=== PATIENT | female | born 1960 | race Two or more races ===

== ENCOUNTER 2017-02-03 12:15 | Day surgery (SDC) | payer OTHER ==
[2017-02-03] VITALS (10 sets, daily range): BP systolic 108–142; BP diastolic 48–75; PULSE 58–92; RESP 10–19
[~2017-02-03] VITALS: Ht 152.4 cm; Wt 79.2 kg
[~2017-02-03 12:15] MED LIST: ACET500C5 PO; MUPI22OI2 TOP; NITR-58 PO; ONDA4TAB35 PO; PHEN-538 PO
--- NOTE | 2017-02-03 12:31 | HPN ---
Date/Time of Note Date/Time of Note DATE: 02/03/17 TIME: 12:31 Interval H&P Admission Note Pt. seen H&P reviewed: No system changes LUTHER TOBAR MD Feb 03, 2017 12:31
[2017-02-03] MEDS ORDERED: CEFAZOLIN 1 GM/50 ML (PMX) 50 ML IVPB ONE (13:30)
[2017-02-03] MEDS ORDERED: OXYMETAZOLINE 0.05% 15 ML NAS SPRAY NASAL ONE ×2 (15:22→16:09)
[2017-02-03] MEDS ORDERED: LIDOCAINE 2%/EPI 30 ML INJ ONE (15:22)
[2017-02-03] MEDS ORDERED: FENTAnyl 50 MCG/ML VIAL ONE (15:48)
[2017-02-03] MEDS ORDERED: MIDAZOLAM 1 MG/ML 2 ML INJ ONE (15:48)
[2017-02-03] MEDS ORDERED: LIDOCAINE 2%/EPI MPF (SDV) 20 ML VIAL INJ ONE (16:09)
[2017-02-03] MEDS ORDERED: ONDANSETRON 4 MG INJ IV PRN (16:30)
[2017-02-03] MEDS ORDERED: DIPHENHYDRAMINE 50 MG INJ IV PRN (16:30)
[2017-02-03] MEDS ORDERED: FENTAnyl 50 MCG/ML VIAL IV PRN (16:30)
[2017-02-03] MEDS ORDERED: MEPERIDINE 25 MG INJ IV PRN (16:30)
[2017-02-03] MEDS ORDERED: GLYCOPYRROLATE 0.4 MG INJ ONE (16:41)
[2017-02-03] MEDS ORDERED: PROPOFOL 20 ML ONE (16:41)
[2017-02-03] MEDS ORDERED: NEOSTIGMINE 3 MG/3 ML SYRINGE ONE (16:41)
[2017-02-03] MEDS ORDERED: LIDOCAINE 2% (SDV) 5 ML INJ ONE (16:41)
[2017-02-03] MEDS ORDERED: ROCURONIUM 50 MG INJ ONE (16:41)
[2017-02-03] MEDS ORDERED: ONDANSETRON 4 MG INJ ONE (16:42)
[2017-02-03] MEDS ORDERED: CEFAZOLIN 1 GM INJ ONE (16:44)
[2017-02-03] MEDS ORDERED: NEOMYC/POLYMYX/BACIT 30 GM OINT TOP ONE (16:45)
--- NOTE | 2017-02-03 16:57 | OPR ---
DATE OF OPERATION: 02/03/2017 PREOPERATIVE DIAGNOSES: 1. Deviated nasal septum. 2. Turbinate hypertrophy. POSTOPERATIVE DIAGNOSES: 1. Deviated nasal septum. 2. Turbinate hypertrophy. OPERATION PERFORMED: 1. Septoplasty. 2. Inferior turbinate reduction. ANESTHESIA: General endotracheal. INDICATIONS FOR PROCEDURE: The patient is a 56-year-old female with a longstanding history of nasal airway obstruction that has been refractory to medical management. The risks, benefits, and altern atives of surgery were discussed which included, but are not limited to, bleeding, infection, pain, scarring, need for further surgery, no improvement in symptoms, septal perforation, numbness of the upper teeth. She understood all of these and signed a consent. DESCRIPTION OF PROCEDURE: After informed consent was obtained the patient was brought back to the o perating room. She was intubated by anesthesia and sedated. The bed was turned 90 degrees. Her ey es were protected, a head drape was placed and Franc-Synephrine soaked pledgets were inserted into the nasal cavity and left for several minutes and then removed. 1% lidocaine with epinephrine was inje cted into the nasal septum and inferior turbinates. A 15 blade was used to make a left hemitransfix ion incision. A mucoperichondrial flap was elevated. The septum was found to be deviated to the le ft side. The inferior portion of the quadrangular cartilage was found to be deviated to the left ove r the maxillary crest. A D-knife was used to excise the inferior portion of the quadrangular cartil age. A 1-cm caudal strut was left intact, with its attachment down to the maxillary crest. Once th is cartilage was removed, it exposed a bony maxillary crest spur which was removed with Kalpana fo rceps. Once this was complete, the flap was laid back down and the flap was closed with interrupted 4-0 chromic suture. A stab incision was made in the heads of both inferior turbinates. Mucoperiosteal flaps were elevat ed. The inferior turbinate bone was removed with the Kalpana forceps. The Coblator was applied whe re needed to reduce the soft tissue of the inferior turbinates. The area was then irrigated profuse ly with saline. Silastic Grey splints coated in antibiotic ointment were placed bilaterally and se cured with a 3-0 Prolene suture. The patient was then handed over to anesthesia, extubated, and bro ught to the recovery room in stable condition. ESTIMATED BLOOD LOSS: Less than 10 mL. INTRAVENOUS FLUIDS: See anesthesia record. DRAINS: None. COMPLICATIONS: None. SPECIMENS: Nasal septum. Dictated By: LUTHER TOBAR MD, MC/BETTINA Conf#: [id number] DID#: [id number]
== END 2017-02-03 19:00 | disposition home or self-care (01) ==
LOC: SDS 12:15
PROVIDERS: ATTEND Otolaryngology
DX: J34.2 Deviated nasal septum (principal); J34.3 Hypertrophy of nasal turbinates; J45.909 Unspecified asthma, uncomplicated; E66.9 Obesity, unspecified; Z68.34 Body mass index [BMI] 34.0-34.9, adult
CPT/HCPCS: 30140; 30520; 88300; J0690; J2175; J2250; J2405; J2710; J3010; Z7512; Z7610

== ENCOUNTER 2018-06-24 14:20 | Emergency (ER) | END 2018-06-24 15:35 | disposition home or self-care (01) ==

== ENCOUNTER 2019-01-10 13:35 | Emergency (ER) | payer OTHER ==
[~2019-01-10] VITALS: Ht 157.5 cm; Wt 82.9 kg
[~2019-01-10 13:35] MED LIST changes: +AMOX500C2 PO; +HYDR-4011 PO; +IBUP-1561 PO; +LORA10TA3 PO
[2019-01-10 14:01] VITALS: Ht 157.5 cm; Wt 82.9 kg
[2019-01-10] MEDS ORDERED: KETOROLAC 30 MG INJ IV STA (15:25)
[2019-01-10] MEDS ORDERED: SOD CHLORIDE 0.9% 1,000 ML IV STA (15:25)
[2019-01-10] MEDS ORDERED: CETI10TA19 PO (16:17)
[2019-01-10] MEDS ORDERED: IBUP800T48 PO (16:17)
[2019-01-10] MEDS ORDERED: FLUT16SP17 NASAL (16:17)
--- NOTE | 2019-01-10 16:27 | ERD ---
ER Documentation Chief Complaint Chief Complaint c/o generalized body pain, on antbx for sinusitis HPI 58-year-old female coming in today with complaints of generalized body pain, headache, sore throat, nasal congestion, productive cough with yellow/green phlegm. Patient reports symptoms have been present for 3 months. Patient reports seeing her primary care doctor last week and was prescribed Augmentin. Patient reports that she just started Augmentin yesterday and she has had a total of 2 doses. Patient also reporting dysuria and bilateral lower back pain is been present for 2 weeks, worsening in the past 2 days. ROS All systems reviewed and are negative except as per history of present illness. Medications Home Meds Active Scripts Amoxicillin/Potassium Clav (Amox-Clav 500-125 mg Tablet) 500-125 mg Tab, 1 TAB PO BID for CHRONIC SINUS INFECTION/UTI for 10 Days, TAB Start this antibiotic after completing the 5-day course of Augmentin 875/125. Prov:HERMILO ALMANZA NP 01/10/19 Guaifenesin/Codeine Phosphate (CHERATUSSIN AC SYRUP) 118 Ml Liquid, 10 ML PO Q6H PRN for COUGH/CHEST CONGESTION/PHYLUM, #118 ML Prov:HERMILO ALMANZA NP 01/10/19 Cetirizine Hcl* (Cetirizine Hcl*) 10 Mg Tablet, 10 MG PO DAILY for ALLERGIES/COUGH/SORE THROAT, #30 TAB Prov:HERMILO ALMANZA NP 01/10/19 Fluticasone Propionate* (Fluticasone Propionate* Nasal) 50 Mcg/Creola - 16 Gm Creola.susp, 1 SPRAY NASAL DAILY for NASAL CONGESTION, #1 BOTTLE TO EACH NOSTRIL; may use 1 spray to each nostril in the morning and at night if no relief with once daily dosing Prov:HERMILO ALMANZA NP 01/10/19 Ibuprofen* (Motrin*) 800 Mg Tab, 800 MG PO Q6H PRN for PAIN AND OR ELEVATED TEMP, #30 TAB Prov:HERMILO ALMANZA NP 01/10/19 Loratadine* (Loratadine*) 10 Mg Tablet, 10 MG PO DAILY, #30 TAB Prov:XAVIER PEREZ MD 06/24/18 Amoxicillin* (Amoxicillin*) 500 Mg Cap, 500 MG PO TID for 10 Days, CAP Prov:XAVIER PEERZ MD 06/24/18 Ibuprofen* (Motrin*) 400 Mg Tab, 400 MG PO Q8, #20 TAB Prov:XAVIER PEREZ MD 06/24/18 Hydrocodone/Acetaminophen ([place] 5-325 Tablet) 1 Each Tablet, 1 TAB PO Q6H PRN for PAIN, #20 TAB Prov:XAVIER PEREZ MD 06/24/18 Phenazopyridine Hcl* (Pyridium*) 200 Mg Tab, 200 MG PO TID PRN for URINARY PAIN, #6 TAB Prov:PATRICK MADERA MD 03/19/16 Ondansetron Hcl* (Zofran* ODT) 4 mg -ODT Tab.disper, 4 MG PO Q6 PRN for NAUSEA AND/OR VOMITING, #30 TAB Prov:PATRICK MADERA MD 03/19/16 Nitrofurantoin Monohyd Macrocr* (Macrobid*) 100 Mg Capsr, 100 MG PO BID for 7 Days, CAP Prov:PATRICK MADERA MD 03/19/16 Mupirocin* (Bactroban*) 2% -22 Gram Oint...g., 1 APPLIC TOP BID for 7 Days, EA Prov:SIMON SALES 06/16/15 Acetaminophen* (Tylophen*) 500 Mg Capsule, 1 CAP PO Q6H PRN for PAIN AND OR ELEVATED TEMP, #20 CAP Prov:SIMON SALES 06/16/15 Allergies Allergies: Coded Allergies: No Known Allergy (Unverified , 06/24/18) PMhx/Soc History of Surgery: Yes (hystrectomy ) Anesthesia Reaction: No Hx Neurological Disorder: No Hx Respiratory Disorders: Yes (asthma , allergies ) Hx Cardiac Disorders: No Hx Psychiatric Problems: No Hx Miscellaneous Medical Probl: Yes ( pt is jehovahs witness) Hx Alcohol Use: No Hx Substance Use: No Hx Tobacco Use: No Smoking Status: Never smoker FmHx Family History: diabetes, coronary disease Physical Exam Vitals Physical Exam Const: No acute distress, patient tearful during examination Head: Atraumatic, tenderness to palpation to frontal sinuses Eyes: Normal Conjunctiva ENT: Normal External Ears, Nose and Mouth. Neck: Full range of motion. No meningismus. Resp: Clear to auscultation bilaterally Cardio: Regular rate and rhythm, no murmurs Abd: Soft, right upper quadrant tenderness, non distended. Normal bowel sounds. Skin: No petechiae or rashes Back: No midline or flank tenderness; no CVA tenderness; unable to reproduce pain; " it feels like it is deeper inside" Ext: No cyanosis, or edema Neur: Awake and alert Psych: Normal Mood and Affect Results 24 hrs Laboratory Tests Test 01/10/19 15:52 01/10/19 15:53 White Blood Count 7.4 10^3/ul Red Blood Count 4.77 10^6/ul Hemoglobin 13.6 g/dl Hematocrit 41.3 % Mean Corpuscular Volume 86.6 fl Mean Corpuscular Hemoglobin 28.5 pg Mean Corpuscular Hemoglobin Concent 32.9 g/dl Red Cell Distribution Width 12.8 % Platelet Count 231 10^3/UL Mean Platelet Volume 11.0 fl Immature Granulocytes % 0.500 % Neutrophils % 53.8 % Lymphocytes % 34.9 % Monocytes % 6.8 % Eosinophils % 3.6 % Basophils % 0.4 % Nucleated Red Blood Cells % 0.0 /100WBC Immature Granulocytes # 0.040 10^3/ul Neutrophils # 4.0 10^3/ul Lymphocytes # 2.6 10^3/ul Monocytes # 0.5 10^3/ul Eosinophils # 0.3 10^3/ul Basophils # 0.0 10^3/ul Nucleated Red Blood Cells # 0.0 10^3/ul Sodium Level 142 mmol/L Potassium Level 3.6 mmol/L Chloride Level 106 mmol/L Carbon Dioxide Level 27 mmol/L Anion Gap 9 Blood Urea Nitrogen 18 mg/dl Creatinine 0.50 mg/dl Est Glomerular Filtrat Rate mL/min > 60 mL/min Glucose Level 98 mg/dl Calcium Level 9.5 mg/dl Total Bilirubin 0.5 mg/dl Direct Bilirubin 0.00 mg/dl Indirect Bilirubin 0.5 mg/dl Aspartate Amino Transf (AST/SGOT) 29 IU/L Alanine Aminotransferase (ALT/SGPT) 44 IU/L Alkaline Phosphatase 96 IU/L Total Protein 7.7 g/dl Albumin 4.5 g/dl Globulin 3.20 g/dl Albumin/Globulin Ratio 1.40 Lipase 87 U/L Urine Color YELLOW Urine Clarity CLEAR Urine pH 5.0 Urine Specific Fleming 1.023 Urine Ketones NEGATIVE mg/dL Urine Nitrite NEGATIVE mg/dL Urine Bilirubin NEGATIVE mg/dL Urine Urobilinogen NEGATIVE mg/dL Urine Leukocyte Esterase TRACE Nura/ul Urine Microscopic RBC 1 /HPF Urine Microscopic WBC 2 /HPF Urine Mucus FEW /HPF Urine Hemoglobin NEGATIVE mg/dL Urine Glucose NEGATIVE mg/dL Urine Total Protein NEGATIVE mg/dl Current Medications Medications Dose Sig/[place] Start Time Status Last (Trade) Ordered Route PRN Stop Time Admin Dose Reason Admin Sodium 1,000 ml @ Q1H STAT 01/10/19 DC 01/10/19 Chloride 1,000 mls/hr IV 15:25 16:24 01/10/19 16:24 Ketorolac 30 mg ONCE STAT 01/10/19 DC 01/10/19 Tromethamine IV 15:25 16:23 (Toradol) 01/10/19 15:26 10 mg ONCE ONCE 01/10/19 DC 01/10/19 Dexamethasone IM 16:30 16:23 (Decadron) 01/10/19 16:31 10 mg ONCE ONCE 01/10/19 DC 01/10/19 Cyclobenzapri PO 16:30 16:23 ne HCl 01/10/19 16:31 (Flexeril) Procedures/MDM ED course includes a thorough examination and history. Medications: Imaging: Abdominal ultrasound gallbladder Labs: CBC, CMP, urinalysis Low suspicion for life-threatening medical emergency. Otherwise healthy patient presenting with constellation of symptoms likely representing chronic frontal sinusitis, dysuria, nonspecific right upper quadrant abdominal pain as characterized by history, physical exam findings, imaging findings, lab findings. CBC: no e/o of systemic infection or severe anemia. CMP: no e/o severe acidosis, alkalosis, renal failure, diabetic ketoacidosis, liver disease. Urinalysis positive for trace leukocyte esterase. Gallbladder ultrasound negative for cholecystitis. Impression showing: IMPRESSION: 1. No evidence of cholelithiasis or acute cholecystitis. 2. Fatty change of the liver RPTAT: HH .James Shelton MD, MD Date Time Electronically viewed and signed by .James Shelton MD, MD on 01/10/2019 16:25 Patient reassessment 1610: Patient hemodynamically stable. Patient with mild decrease in pain after administration of ketorolac and IV NS. Patient rating pain 7/10. Orders placed for dexamethasone and cyclobenzaprine before discharge. No respiratory distress, otherwise relatively well appearing and nontoxic. Blood work and urine results discussed, awaiting ultrasound results. Patient reassessment at 1630: Disposition given. Ultrasound results reviewed with patient. Patient educated on diagnoses, prescriptions, follow-up care, return precautions. Strict return precautions given for worsening condition; questions answered discharge. Disposition for discharge with followup in 2 days with PCP/clinic. Departure Diagnosis: Primary Impression: Chronic frontal sinusitis Additional Impressions: Right upper quadrant abdominal pain Dysuria Condition: Stable Patient Instructions: Abdominal Pain, Dysuria, Sinusitis, Abx Tx Referrals: [facility] YOU HAVE RECEIVED A MEDICAL SCREENING EXAM AND THE RESULTS INDICATE THAT YOU DO NOT HAVE A CONDITION THAT REQUIRES URGENT TREATMENT IN THE EMERGENCY DEPARTMENT. FURTHER EVALUATION AND TREATMENT OF YOUR CONDITION CAN WAIT UNTIL YOU ARE SEEN IN YOUR DOCTORS OFFICE WITHIN THE NEXT 1-2 DAYS. IT IS YOUR RESPONSIBILITY TO MAKE AN APPOINTMENT FOR FOLOW-UP CARE. IF YOU HAVE A PRIMARY DOCTOR --you should call your primary doctor and schedule an appointment IF YOU DO NOT HAVE A PRIMARY DOCTOR YOU CAN CALL OUR PHYSICIAN REFERRAL HOTLINE AT IF YOU CAN NOT AFFORD TO SEE A PHYSICIAN YOU CAN CHOSE FROM THE FOLLOWING [facility] [address] [facility]. [facility] [address] [facility] [place] [facility] [facility] [address] [facility]. [facility] [address] [facility] [facility]. [address] [facility] YOU HAVE RECEIVED A MEDICAL SCREENING EXAM AND THE RESULTS INDICATE THAT YOU DO NOT HAVE A CONDITION THAT REQUIRES URGENT TREATMENT IN THE EMERGENCY DEPARTMENT. FURTHER EVALUATION AND TREATMENT OF YOUR CONDITION CAN WAIT UNTIL YOU ARE SEEN IN YOUR DOCTORS OFFICE WITHIN THE NEXT 1-2 DAYS. IT IS YOUR RESPONSIBILITY TO MAKE AN APPOINTMENT FOR FOLOW-UP CARE. IF YOU HAVE A PRIMARY DOCTOR --you should call your primary doctor and schedule and appointment IF YOU DO NOT HAVE A PRIMARY DOCTOR YOU CAN CALL OUR PHYSICIAN REFERRAL HOTLINE AT . IF YOU CAN NOT AFFORD TO SEE A PHYSICIAN YOU CAN CHOSE FROM THE FOLLOWING [facility]: [facility] [address] [place] [address] [facility] [place] [address] [place] [address] [facility] [address] [place] [address] Additional Instructions: Thank you very much for allowing us to participate in your care. Your health and safety is our top priority at [facility]. It is important to read all discharge instructions and education provided in your discharge packet. *Continue Augmentin antibiotic for sinus infection; this antibiotic will also treat urinary tract infection.* Call your primary care doctor TOMORROW for an appointment during the next 2-4 days and bring all the information and medications prescribed. Have prescriptions filled and follow precisely the directions on the label. If the symptoms get worse and your provider is unavailable, return to the Emergency Department immediately. HERMILO ALMANZA NP January 10, 2019 16:27
[2019-01-10] MEDS ORDERED: GUAI118L22 PO (16:28)
[2019-01-10] MEDS ORDERED: AMOX1TAB9 PO (16:29)
[2019-01-10] MEDS ORDERED: DEXAMETHASONE 10 MG/ML 1 ML INJ IM ONE (16:30)
[2019-01-10] MEDS ORDERED: CYCLOBENZAPRINE 10 MG TAB PO ONE (16:30)
[2019-01-10 19:15] VITALS: BP 117/56; PULSE 80; RESP 18
== END 2019-01-10 19:17 | disposition home or self-care (01) ==
LOC: FTE 13:35
DX: J32.9 Chronic sinusitis, unspecified (principal); R10.11 Right upper quadrant pain; R30.0 Dysuria; J45.909 Unspecified asthma, uncomplicated
CPT/HCPCS: 76705; 80053; 81001; 83690; 85025; 87086; J1100; J1885; J7030; Z7610; 36415; 96372; 96374

== ENCOUNTER 2019-02-21 14:06 | Emergency (ER) | payer OTHER ==
[~2019-02-21] VITALS: Wt 83.6 kg
[~2019-02-21 14:06] MED LIST changes: +AMOX1TAB9 PO; +CETI10TA19 PO; +FLUT16SP17 NASAL; +GUAI118L22 PO; +IBUP800T48 PO
[2019-02-21 15:00] VITALS: BP 124/64; PULSE 87; RESP 20
[2019-02-21] MEDS ORDERED: IBUPROFEN 600 MG TAB PO ONE (15:30)
[2019-02-21] MEDS ORDERED: LORAZEPAM 0.5 MG TAB PO ONE (16:00)
[2019-02-21] MEDS ORDERED: MED4DP PO (17:27)
[2019-02-21] MEDS ORDERED: IBUP-1542 PO (17:27)
[2019-02-21] MEDS ORDERED: AMOX1TAB10 PO (17:27)
--- NOTE | 2019-02-21 18:51 | ERD ---
ER Documentation Chief Complaint Chief Complaint SALDANA, SORE THROAT, L. EARACHE HPI 58-year-old female with history of recurrent sinusitis presents with complaints of a frontal headache, sore throat and bilateral ear pressure for the past 2 weeks. Patient states symptoms have been progressively worse. She states her symptoms are related to her previous sinusitis. She states she was last treated for sinusitis approximately 2 months ago. She has not had any imaging and is requesting CT of the head and sinuses today. Patient is very tearful and is very frustrated with having these recurrent sinus infections. She denies any difficulty breathing. Denies any facial swelling. Denies any fevers or chills. No cough, chest pain or shortness of breath. ROS All systems reviewed and are negative except as per history of present illness. Medications Home Meds Active Scripts Ibuprofen* (Motrin*) 600 Mg Tab, 600 MG PO Q6H PRN for PAIN AND OR ELEVATED TEMP, #30 TAB Prov:DISHIGRIKIAN,ZEPYUR N PA-C 02/21/19 Methylprednisolone* (Medrol* DOSE PACK) 4 Mg/Dose-Pack Tab.ds.pk, 4 MG PO . DIRECTED, #1 PACKET Prov:DISHIGRIKIAN,ZEPYUR N PA-C 02/21/19 Amoxicillin/Potassium Clav (Amox-Clav 875-125 mg Tablet) 875-125 mg Tab, 1 TAB PO BID for 10 Days, #20 TAB Prov:DISHIGRIKIAN,ZEPYUR N PA-C 02/21/19 Amoxicillin/Potassium Clav (Amox-Clav 500-125 mg Tablet) 500-125 mg Tab, 1 TAB PO BID for CHRONIC SINUS INFECTION/UTI for 10 Days, TAB Start this antibiotic after completing the 5-day course of Augmentin 875/125. Prov:HERMILO ALMANZA NP 01/10/19 Guaifenesin/Codeine Phosphate (CHERATUSSIN AC SYRUP) 118 Ml Liquid, 10 ML PO Q6H PRN for COUGH/CHEST CONGESTION/PHYLUM, #118 ML Prov:HERMILO ALMANZA NP 01/10/19 Cetirizine Hcl* (Cetirizine Hcl*) 10 Mg Tablet, 10 MG PO DAILY for ALLERGIES/COUGH/SORE THROAT, #30 TAB Prov:HERMILO ALMANZA NP 01/10/19 Fluticasone Propionate* (Fluticasone Propionate* Nasal) 50 Mcg/[place] - 16 Gm [place].susp, 1 SPRAY NASAL DAILY for NASAL CONGESTION, #1 BOTTLE TO EACH NOSTRIL; may use 1 spray to each nostril in the morning and at night if no relief with once daily dosing Prov:HERMILO ALMANZA NP 01/10/19 Ibuprofen* (Motrin*) 800 Mg Tab, 800 MG PO Q6H PRN for PAIN AND OR ELEVATED TEMP, #30 TAB Prov:HERMILO ALMANZA NP 01/10/19 Loratadine* (Loratadine*) 10 Mg Tablet, 10 MG PO DAILY, #30 TAB Prov:XAVIER PEREZ MD 06/24/18 Amoxicillin* (Amoxicillin*) 500 Mg Cap, 500 MG PO TID for 10 Days, CAP Prov:XAVIER PEREZ MD 06/24/18 Ibuprofen* (Motrin*) 400 Mg Tab, 400 MG PO Q8, #20 TAB Prov:XAVIER PEREZ MD 06/24/18 Hydrocodone/Acetaminophen ([place] 5-325 Tablet) 1 Each Tablet, 1 TAB PO Q6H PRN for PAIN, #20 TAB Prov:XAVIER PEREZ MD 06/24/18 Phenazopyridine Hcl* (Pyridium*) 200 Mg Tab, 200 MG PO TID PRN for URINARY PAIN, #6 TAB Prov:PATRICK MADERA MD 03/19/16 Ondansetron Hcl* (Zofran* ODT) 4 mg -ODT Tab.disper, 4 MG PO Q6 PRN for NAUSEA AND/OR VOMITING, #30 TAB Prov:PATRICK MADERA MD 03/19/16 Nitrofurantoin Monohyd Macrocr* (Macrobid*) 100 Mg Capsr, 100 MG PO BID for 7 Days, CAP Prov:PATRICK MADERA MD 03/19/16 Mupirocin* (Bactroban*) 2% -22 Gram Oint...g., 1 APPLIC TOP BID for 7 Days, EA Prov:SIMON SALES 06/16/15 Acetaminophen* (Tylophen*) 500 Mg Capsule, 1 CAP PO Q6H PRN for PAIN AND OR ELEVATED TEMP, #20 CAP Prov:SIMON SALES 06/16/15 Allergies Allergies: Coded Allergies: No Known Allergy (Unverified , 06/24/18) PMhx/Soc History of Surgery: Yes (hystrectomy ) Anesthesia Reaction: No Hx Neurological Disorder: No Hx Respiratory Disorders: Yes (asthma , allergies ) Hx Cardiac Disorders: No Hx Psychiatric Problems: No Hx Miscellaneous Medical Probl: Yes ( pt is jehovahs witness) Hx Alcohol Use: No Hx Substance Use: No Hx Tobacco Use: No Smoking Status: Never smoker Physical Exam Vitals Vital Signs Date Temp Pulse Resp B/P (MAP) Pulse Ox O2 O2 Flow FiO2 Time Delivery Rate 02/21/19 98.5 87 20 124/64 97 15:00 (84) Physical Exam Const: + Anxious, tearful Head: Atraumatic Eyes: Normal Conjunctiva ENT: + Posterior OP erythema. Clear nasal discharge. Tenderness to percussion across the frontal maxillary sinuses. Bilateral TMs pearly and nonerythematous with good cone of light reflex. Neck: Full range of motion. No meningismus. Resp: Clear to auscultation bilaterally Cardio: Regular rate and rhythm, no murmurs Skin: No petechiae or rashes Neur: Awake and alert Psych: Normal Mood and Affect. + Tearful, anxious Results 24 hrs Current Medications Medications Dose Sig/[place] Start Time Status Last (Trade) Ordered Route PRN Stop Time Admin Dose Reason Admin Ibuprofen 600 mg ONCE ONCE 02/21/19 DC 02/21/19 (Motrin) PO 15:30 02/21/19 15:40 15:31 Lorazepam 0.5 mg ONCE ONCE 02/21/19 DC 02/21/19 (Ativan) PO 16:00 02/21/19 15:40 16:01 Procedures/MDM LABS & DIAGNOSTIC IMAGING: PROCEDURE: CT Brain without contrast. CLINICAL INDICATION: Headache, sinus pressure. TECHNIQUE: A CT of the brain without contrast was performed utilizing axial sections from the skull base through the vertex. One or more the following does reduction techniques were utilized: Automated exposure control, adjustment of the mA/ or kV according to patient's size, or use of iterative reconstruction technique. Total exam CTDIvol is 38 MGy and DLP is 634 mGy-cm. DICOM images are available. COMPARISON: None available. FINDINGS: The ventricles and sulci are age-appropriate. There is no intracranial hemorrhage, mass effect or midline shift. No abnormal intra-axial or extra- axial fluid collections are seen. The sanchez/white matter differentiation is well preserved. There are mild scattered foci of hypoattenuation in the periventricular, deep, and subcortical white matter, which are nonspecific in etiology but likely reflect chronic small vessel ischemic changes. There are mild intracranial vascular calcifications consistent with atherosclerosis. The visualized paranasal sinuses demonstrate mild scattered mucosal thickening. The mastoid air cells are essentially clear. IMPRESSION: 1. No acute intracranial hemorrhage, transcortical infarction or mass effect. 2. Mild intracranial atherosclerosis and chronic small vessel ischemic changes. PROCEDURE: CT Paranasal Sinuses. CLINICAL INDICATION: Headache, sinus pressure. TECHNIQUE: On a Haloband CT 64-slice multidetector scanner, volumetric data was acquired through the paranasal sinuses with reconstruction of 2.5 mm size thickness axial and coronal images. One or more the following does reduction techniques were utilized: Automated exposure control, adjustment of the mA/ or kV according to patient's size, or use of iterative reconstruction technique. DLP 506 mGy-cm. CTDI 24 mGy. DICOM images are available. COMPARISON: Brain CT of the same day. FINDINGS: The paranasal sinuses are well-developed and well-aerated. The ostiomeatal units are patent bilaterally. There is mild scattered mucosal thickening mainly in inferior bilateral maxillary sinuses and ethmoid air cells. No air-fluid levels are seen. The frontoethmoidal and sphenoethmoid recesses are clear. The lamina papyracea and orbital floors are intact. The nasal septum is mildly deviated to the right. 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 The nasopharynx reveals no abnormality. The visualized mastoid air cells are clear. IMPRESSION: 1. Mild scattered paranasal sinus disease without associated air fluid levels. 2. Mild rightward nasal septal deviation. 3. Right anjali bullosa. RPTAT: UU ED COURSE: The patient was given ibuprofen, Ativan The medication was well tolerated and the patient had market improvement in symptoms. The patient remained stable throughout ED course. MEDICAL DECISION MAKING: This is a 58-year-old female with history of recurrent sinusitis who presents with sinus pressure and pain. She requests CT of the head and sinuses which wer e obtained. CT of the head is unremarkable. CT of the sinuses showed evidence of sinusitis. Given duration of symptoms, will treat as bacterial with oral antibiotics. Also prescribed Medrol Dosepak and ibuprofen as well. Patient continues to have recurrent sinus infections, defer recommended that she see a PCP for referral to an ENT. She has no evidence of periorbital or orbital cellulitis. No evidence of meningitis or mastoiditis. No evidence of any other emergent pathology. PRESCRIPTIONS: Augmentin, Medrol Dosepak, ibuprofen SPECIALIST FOLLOW UP RECOMMENDED: ENT Patient has been advised to follow up with primary care in 1-2 days. Departure Diagnosis: Primary Impression: Sinusitis Additional Impression: Anxiety Patient Instructions: Sinusitis, Abx Tx Referrals: COMM[facility] YOU HAVE RECEIVED A MEDICAL SCREENING EXAM AND THE RESULTS INDICATE THAT YOU DO NOT HAVE A CONDITION THAT REQUIRES URGENT TREATMENT IN THE EMERGENCY DEPARTMENT. FURTHER EVALUATION AND TREATMENT OF YOUR CONDITION CAN WAIT UNTIL YOU ARE SEEN IN YOUR DOCTORS OFFICE WITHIN THE NEXT 1-2 DAYS. IT IS YOUR RESPONSIBILITY TO MAKE AN APPOINTMENT FOR FOLOW-UP CARE. IF YOU HAVE A PRIMARY DOCTOR --you should call your primary doctor and schedule an appointment IF YOU DO NOT HAVE A PRIMARY DOCTOR YOU CAN CALL OUR PHYSICIAN REFERRAL HOTLINE AT IF YOU CAN NOT AFFORD TO SEE A PHYSICIAN YOU CAN CHOSE FROM THE FOLLOWING [facility] [address] [facility]. [facility] [address] [facility]. [facility] [address] [facility]. [facility] [address] [facility] [facility] [address] [facility]. [facility]. [address] [facility]. [facility] YOU HAVE RECEIVED A MEDICAL SCREENING EXAM AND THE RESULTS INDICATE THAT YOU DO NOT HAVE A CONDITION THAT REQUIRES URGENT TREATMENT IN THE EMERGENCY DEPARTMENT. FURTHER EVALUATION AND TREATMENT OF YOUR CONDITION CAN WAIT UNTIL YOU ARE SEEN IN YOUR DOCTORS OFFICE WITHIN THE NEXT 1-2 DAYS. IT IS YOUR RESPONSIBILITY TO MAKE AN APPOINTMENT FOR FOLOW-UP CARE. IF YOU HAVE A PRIMARY DOCTOR --you should call your primary doctor and schedule and appointment IF YOU DO NOT HAVE A PRIMARY DOCTOR YOU CAN CALL OUR PHYSICIAN REFERRAL HOTLINE AT . IF YOU CAN NOT AFFORD TO SEE A PHYSICIAN YOU CAN CHOSE FROM THE FOLLOWING [facility] INSTITUTIONS: [facility] [address] [place] [address] [facility] [address] [place] [address] [facility] [address] [place] [address] Additional Instructions: Call your primary care doctor TOMORROW for an appointment during the next 2-4 days and bring all the information and medications prescribed. If the symptoms get worse and your provider is unavailable, return to the Emergency Department immediately. DOMENIC ANDERS PA-C Feb 21, 2019 18:51
== END 2019-02-21 17:41 | disposition home or self-care (01) ==
LOC: FTE 14:06
DX: J32.9 Chronic sinusitis, unspecified (principal); F41.9 Anxiety disorder, unspecified
CPT/HCPCS: 70450; 70486; Z7502; Z7610

== ENCOUNTER 2019-03-19 14:35 | Emergency (ER) | payer OTHER ==
[~2019-03-19] VITALS: Ht 152.4 cm; Wt 83.2 kg
[~2019-03-19 14:35] MED LIST changes: +AMOX1TAB10 PO; +IBUP-1542 PO; +MED4DP PO
[2019-03-19 14:37] VITALS: BP 127/73; PULSE 102; RESP 20; Ht 152.4 cm; Wt 83.2 kg
[2019-03-19] MEDS ORDERED: KETOROLAC 30 MG INJ IM STA (15:15)
[2019-03-19] MEDS ORDERED: DEXAMETHASONE 10 MG/ML 1 ML INJ IM ONE (15:30)
[2019-03-19] MEDS ORDERED: DIPHENHYDRAMINE 50 MG CAP PO ONE (15:30)
[2019-03-19] MEDS ORDERED: FAMOTIDINE 20 MG TAB PO ONE (15:30)
--- NOTE | 2019-03-19 15:30 | ERD ---
ER Documentation Chief Complaint Chief Complaint TWO BUG BITES. THROAT FEELS SWOLLEN, HEADACHE, NASAL CONGESTION HPI 58-year-old female with past medical history of asthma, allergies presents with multiple complaints including bite with resulting swelling and erythema to left forearm. Also with complaint of nasal congestion, headache and feeling of like her throat is swollen. She otherwise denies chest pain, shortness of breath, dyspnea, nausea, vomiting, diarrhea, abdominal pain. Incidentally she has a complaint of left arm tender nodule/rash over the past 8 months which is acutely worsened over the past several weeks. She has not taken any medications for this issue and has not seen her PMD regarding these complaints. At time of evaluation patient nontoxic-appearing with reassuring vital signs, concerning respiratory symptoms. ROS All systems reviewed and are negative except as per history of present illness. Medications Home Meds Active Scripts Acetaminophen* (Tylophen*) 500 Mg Capsule, 1 CAP PO Q6H PRN for PAIN AND OR ELEVATED TEMP, #20 CAP Prov:JEUDINEGETHO PA-C 03/19/19 Cephalexin* (Keflex*) 500 Mg Capsule, 500 MG PO QID for 7 Days, CAP Prov:JEUDINE,GETHO PA-C 03/19/19 Sulfamethoxazole/Trimethoprim* (Bactrim Ds* Tablet) 1 Each Tablet, 1 TAB PO BID, #14 TAB Prov:JESOWMYA RUBYHO PA-C 03/19/19 Prednisone* (Prednisone*) 20 Mg Tab, 40 MG PO DAILY for 4 Days, TAB Prov:JEUDINEGETHO PA-C 03/19/19 Diphenhydramine Hcl* (Benadryl*) 25 Mg Cap, 25 MG PO Q6, #30 CAP Prov:JEUDINEGETHO PA-C 03/19/19 Ibuprofen* (Motrin*) 600 Mg Tab, 600 MG PO Q6H PRN for PAIN AND OR ELEVATED TEMP, #30 TAB Prov:DISHIGRIKIANDOMENIC N PA-C 02/21/19 Methylprednisolone* (Medrol* DOSE PACK) 4 Mg/Dose-Pack Tab.ds.pk, 4 MG PO . DIRECTED, #1 PACKET Prov:DISHIGRIKIAN,ZEPYUR N PA-C 02/21/19 Amoxicillin/Potassium Clav (Amox-Clav 875-125 mg Tablet) 875-125 mg Tab, 1 TAB PO BID for 10 Days, #20 TAB Prov:DOMENIC ANDERS Beatriz BROWNING 02/21/19 Amoxicillin/Potassium Clav (Amox-Clav 500-125 mg Tablet) 500-125 mg Tab, 1 TAB PO BID for CHRONIC SINUS INFECTION/UTI for 10 Days, TAB Start this antibiotic after completing the 5-day course of Augmentin 875/125. Prov:HERMILO ALMANZA NP 01/10/19 Guaifenesin/Codeine Phosphate (CHERATUSSIN AC SYRUP) 118 Ml Liquid, 10 ML PO Q6H PRN for COUGH/CHEST CONGESTION/PHYLUM, #118 ML Prov:HERMILO ALMANZA NP 01/10/19 Cetirizine Hcl* (Cetirizine Hcl*) 10 Mg Tablet, 10 MG PO DAILY for ALLERGIES/COUGH/SORE THROAT, #30 TAB Prov:HERMILO ALMANZA NP 01/10/19 Fluticasone Propionate* (Fluticasone Propionate* Nasal) 50 Mcg/[place] - 16 Gm [place].susp, 1 SPRAY NASAL DAILY for NASAL CONGESTION, #1 BOTTLE TO EACH NOSTRIL; may use 1 spray to each nostril in the morning and at night if no relief with once daily dosing Prov:HERMILO ALMANZA NP 01/10/19 Ibuprofen* (Motrin*) 800 Mg Tab, 800 MG PO Q6H PRN for PAIN AND OR ELEVATED TEMP, #30 TAB Prov:HERMILO ALMANZA NP 01/10/19 Loratadine* (Loratadine*) 10 Mg Tablet, 10 MG PO DAILY, #30 TAB Prov:XAVIER PEREZ MD 06/24/18 Amoxicillin* (Amoxicillin*) 500 Mg Cap, 500 MG PO TID for 10 Days, CAP Prov:XAVIER PEREZ MD 06/24/18 Ibuprofen* (Motrin*) 400 Mg Tab, 400 MG PO Q8, #20 TAB Prov:XAVIER PEREZ MD 06/24/18 Hydrocodone/Acetaminophen ([place] 5-325 Tablet) 1 Each Tablet, 1 TAB PO Q6H PRN for PAIN, #20 TAB Prov:XAVIER PEREZ MD 06/24/18 Phenazopyridine Hcl* (Pyridium*) 200 Mg Tab, 200 MG PO TID PRN for URINARY PAIN, #6 TAB Prov:OSTICK,PATRICK MD 03/19/16 Ondansetron Hcl* (Zofran* ODT) 4 mg -ODT Tab.disper, 4 MG PO Q6 PRN for NAUSEA AND/OR VOMITING, #30 TAB Prov:PATRICK MADERA MD 03/19/16 Nitrofurantoin Monohyd Macrocr* (Macrobid*) 100 Mg Capsr, 100 MG PO BID for 7 Days, CAP Prov:PATRICK MADERA MD 03/19/16 Mupirocin* (Bactroban*) 2% -22 Gram Oint...g., 1 APPLIC TOP BID for 7 Days, EA Prov:SIMON SALES 06/16/15 Acetaminophen* (Tylophen*) 500 Mg Capsule, 1 CAP PO Q6H PRN for PAIN AND OR ELEVATED TEMP, #20 CAP Prov:SIMON SALES 06/16/15 Allergies Allergies: Coded Allergies: No Known Allergy (Unverified , 03/19/19) PMhx/Soc History of Surgery: Yes (hystrectomy ) Anesthesia Reaction: No Hx Neurological Disorder: No Hx Respiratory Disorders: Yes (asthma , allergies ) Hx Cardiac Disorders: No Hx Psychiatric Problems: No Hx Miscellaneous Medical Probl: Yes ( pt is jehovahs witness) Hx Alcohol Use: No Hx Substance Use: No Hx Tobacco Use: No Smoking Status: Never smoker FmHx Family History: No diabetes, No coronary disease, No other Physical Exam Vitals Vital Signs Date Temp Pulse Resp B/P (MAP) Pulse Ox O2 O2 Flow FiO2 Time Delivery Rate 03/19/19 99.5 102 20 127/73 98 14:37 (91) Physical Exam I have reviewed the triage vital signs. Const: Well nourished, well developed, appears stated age, no respiratory distress, peaking in full sentences Eyes: PERRL, no conjunctival injection HENT: NCAT, Neck supple without meningismus, posterior oropharynx without swelli ng or erythema, tongue unremarkable, no lip swelling CV: RRR, Warm, well-perfused extremities RESP: CTAB, Unlabored respiratory effort GI: soft, non-tender, non-distended, no masses MSK: No gross deformities appreciated Skin: Warm, dry. Side of left forearm with patch of erythema and swelling, tender to touch, left arm just below armpit with small cyst like nodule that is red and tender, 5 5 strength throughout, SI LT throughout Neuro: grossly non focal Psych: Appropriate mood and affect. Results 24 hrs Current Medications Medications Dose Sig/[place] Start Time Status Last (Trade) Ordered Route PRN Stop Time Admin Dose Reason Admin 50 mg ONCE ONCE 03/19/19 DC 03/19/19 Diphenhydrami PO 15:30 15:40 ne HCl 03/19/19 15:31 (Benadryl) Famotidine 20 mg ONCE ONCE 03/19/19 DC 03/19/19 (Pepcid) PO 15:30 15:40 03/19/19 15:31 Ketorolac 30 mg ONCE STAT 03/19/19 DC 03/19/19 Tromethamine IM 15:15 15:41 (Toradol) 03/19/19 15:18 10 mg ONCE ONCE 03/19/19 DC 03/19/19 Dexamethasone IM 15:30 15:41 (Decadron) 03/19/19 15:31 Lidocaine 20 ml ONCE ONCE 03/19/19 DC (Xylocaine INJ 16:00 2% (Mdv) 20 03/19/19 16:01 ml) Bacitracin 1 applic ONCE ONCE 03/19/19 DC (Bacitracin TOP 16:30 Oint (Ud)) 03/19/19 16:31 Procedures/MDM 58-year-old female presents with complaint of insect bite. Symptoms likely secondary to her allergic reaction following insect bite. Patient has a reassuring exam and have low suspicion for anaphylactic type reaction and symptoms likely self-limiting. Left forearm lesion does not appear infected. Left upper torso area of concern likely represents underlying solid benign cyst with small superficial pockets of pus noted but not much. Abscess Incision and Drainage with irrigation by me: Location: Left torso just below the armpit, small amount of pus drained Anesthesia: lidocaine Technique: Small incision made with scalpel Packing: None Complications: Neurovascularly intact post procedure Course: Small area just below left armpit drained with single small incision Benadryl, Pepcid, steroids Patient with improvement in symptoms with treatment in the ED Bactrim and Keflex Wound check in 48 hours DISPOSITION PLAN: We discussed follow up with the patient's primary care doctor within 24 to 48 hours. Patient counseled regarding my diagnostic impression and care plan. Prior to discharge all questions answered. Pt agrees with treatment plan and understands strict return precautions. Precautionary instructions provided including instructions to return to the ER if not improving or for any worsening or changing symptoms or concerns. Disclaimer: Inadvertent spelling and grammatical errors are likely due to EHR/dictation software use and do not reflect on the overall quality of patient care. Also, please note that the electronic time recorded on this note does not necessarily reflect the actual time of the patient encounter. Departure Diagnosis: Primary Impression: Bug bite Condition: Stable Patient Instructions: Insect Bites and Stings Referrals: [facility] YOU HAVE RECEIVED A MEDICAL SCREENING EXAM AND THE RESULTS INDICATE THAT YOU DO NOT HAVE A CONDITION THAT REQUIRES URGENT TREATMENT IN THE EMERGENCY DEPARTMENT. FURTHER EVALUATION AND TREATMENT OF YOUR CONDITION CAN WAIT UNTIL YOU ARE SEEN IN YOUR DOCTORS OFFICE WITHIN THE NEXT 1-2 DAYS. IT IS YOUR RESPONSIBILITY TO MAKE AN APPOINTMENT FOR FOLOW-UP CARE. IF YOU HAVE A PRIMARY DOCTOR --you should call your primary doctor and schedule an appointment IF YOU DO NOT HAVE A PRIMARY DOCTOR YOU CAN CALL OUR PHYSICIAN REFERRAL HOTLINE AT IF YOU CAN NOT AFFORD TO SEE A PHYSICIAN YOU CAN CHOSE FROM THE FOLLOWING [facility] [address] [facility]. [facility] [address] [facility] [facility] [address] [facility] [facility] [address] [facility]. [facility] [address] [facility]. [facility]. [address] [place] Additional Instructions: Call your primary care doctor TOMORROW for an appointment during the next 2-3 days.See the doctor sooner or return here if your condition worsens before your appointment time. ROBERTO DOVER PA-C Mar 19, 2019 15:30
[2019-03-19] MEDS ORDERED: LIDOCAINE 2% (MDV) 20 ML INJ INJ ONE (16:00)
[2019-03-19] MEDS ORDERED: BACITRACIN 0.9 GM OINT TOP ONE (16:30)
[2019-03-19] MEDS ORDERED: CEPH-443 PO (16:32)
[2019-03-19] MEDS ORDERED: BEN25 PO (16:32)
[2019-03-19] MEDS ORDERED: SULF1TAB31 PO (16:32)
[2019-03-19] MEDS ORDERED: PRED20TA PO (16:32)
[2019-03-19] MEDS ORDERED: ACET500C5 PO (16:32)
[2019-03-19] MEDS ORDERED: BACITRACIN 0.5%/ZINC 28.35 GM OINT TOP ONE (17:00)
== END 2019-03-19 17:03 | disposition home or self-care (01) ==
LOC: FTE 14:35
DX: S50.862A Insect bite (nonvenomous) of left forearm, initial encounter (principal); J45.909 Unspecified asthma, uncomplicated; L02.412 Cutaneous abscess of left axilla; W57.XXXA Bitten or stung by nonvenomous insect and other nonvenomous arthropods, initial encounter; Y92.9 Unspecified place or not applicable
CPT/HCPCS: 10060; 96372; J1100; J1885; Z7502; Z7610

== ENCOUNTER 2019-03-21 13:32 | Emergency (ER) | payer OTHER ==
[~2019-03-21] VITALS: Ht 152.4 cm; Wt 83.8 kg
[~2019-03-21 13:32] MED LIST changes: +BEN25 PO; +CEPH-443 PO; +PRED20TA PO; +SULF1TAB31 PO
[2019-03-21 13:39] VITALS: BP 128/64; PULSE 82; RESP 16; Ht 152.4 cm; Wt 83.8 kg
--- NOTE | 2019-03-21 20:54 | ERD ---
ER Documentation Chief Complaint Chief Complaint provider told pt to come back for incision check up HPI 58-year-old female with history of asthma presents for wound check of her left axilla incision and drainage done here in ER 2 days ago. Is healing well. She denies any fevers or chills. She is currently taking antibiotics. Denies significant pain. No other modifying factors noted, no other treatments tried at home. ROS All systems reviewed and are negative except as per history of present illness. Medications Home Meds Active Scripts Acetaminophen* (Tylophen*) 500 Mg Capsule, 1 CAP PO Q6H PRN for PAIN AND OR ELEVATED TEMP, #20 CAP Prov:JEUDINE,GETHO PA-C 03/19/19 Cephalexin* (Keflex*) 500 Mg Capsule, 500 MG PO QID for 7 Days, CAP Prov:JEUDINE,GETHO PA-C 03/19/19 Sulfamethoxazole/Trimethoprim* (Bactrim Ds* Tablet) 1 Each Tablet, 1 TAB PO BID, #14 TAB Prov:JEUDINEGETHO PA-C 03/19/19 Prednisone* (Prednisone*) 20 Mg Tab, 40 MG PO DAILY for 4 Days, TAB Prov:JEUDINE,GETHO PA-C 03/19/19 Diphenhydramine Hcl* (Benadryl*) 25 Mg Cap, 25 MG PO Q6, #30 CAP Prov:JEUDINE,GETHO PA-C 03/19/19 Ibuprofen* (Motrin*) 600 Mg Tab, 600 MG PO Q6H PRN for PAIN AND OR ELEVATED TEMP, #30 TAB Prov:DISHIGRIKIAN,ZEPYUR N PA-C 02/21/19 Methylprednisolone* (Medrol* DOSE PACK) 4 Mg/Dose-Pack Tab.ds.pk, 4 MG PO . DIRECTED, #1 PACKET Prov:DISHIGRIKIAN,ZEPYUR N PA-C 02/21/19 Amoxicillin/Potassium Clav (Amox-Clav 875-125 mg Tablet) 875-125 mg Tab, 1 TAB PO BID for 10 Days, #20 TAB Prov:DISHIGRIKIAN,ZEPYUR N PA-C 02/21/19 Amoxicillin/Potassium Clav (Amox-Clav 500-125 mg Tablet) 500-125 mg Tab, 1 TAB PO BID for CHRONIC SINUS INFECTION/UTI for 10 Days, TAB Start this antibiotic after completing the 5-day course of Augmentin 875/125. Prov:HERMILO ALMANZA NP 01/10/19 Guaifenesin/Codeine Phosphate (CHERATUSSIN AC SYRUP) 118 Ml Liquid, 10 ML PO Q6H PRN for COUGH/CHEST CONGESTION/PHYLUM, #118 ML Prov:HERMILO ALMANZA NP 01/10/19 Cetirizine Hcl* (Cetirizine Hcl*) 10 Mg Tablet, 10 MG PO DAILY for ALLERGIES/COUGH/SORE THROAT, #30 TAB Prov:HERMILO ALMANZA NP 01/10/19 Fluticasone Propionate* (Fluticasone Propionate* Nasal) 50 Mcg/[place] - 16 Gm [place].susp, 1 SPRAY NASAL DAILY for NASAL CONGESTION, #1 BOTTLE TO EACH NOSTRIL; may use 1 spray to each nostril in the morning and at night if no relief with once daily dosing Prov:HERMILO ALMANZA NP 01/10/19 Ibuprofen* (Motrin*) 800 Mg Tab, 800 MG PO Q6H PRN for PAIN AND OR ELEVATED TEMP, #30 TAB Prov:HERMILO ALMANZA NP 01/10/19 Loratadine* (Loratadine*) 10 Mg Tablet, 10 MG PO DAILY, #30 TAB Prov:XAVIER PEREZ MD 06/24/18 Amoxicillin* (Amoxicillin*) 500 Mg Cap, 500 MG PO TID for 10 Days, CAP Prov:XAVIER PEREZ MD 06/24/18 Ibuprofen* (Motrin*) 400 Mg Tab, 400 MG PO Q8, #20 TAB Prov:XAVIER PEREZ MD 06/24/18 Hydrocodone/Acetaminophen ([place] 5-325 Tablet) 1 Each Tablet, 1 TAB PO Q6H PRN for PAIN, #20 TAB Prov:XAVIER PEREZ MD 06/24/18 Phenazopyridine Hcl* (Pyridium*) 200 Mg Tab, 200 MG PO TID PRN for URINARY PAIN, #6 TAB Prov:PATRICK MADERA MD 03/19/16 Ondansetron Hcl* (Zofran* ODT) 4 mg -ODT Tab.disper, 4 MG PO Q6 PRN for NAUSEA AND/OR VOMITING, #30 TAB Prov:PATRICK MADERA MD 03/19/16 Nitrofurantoin Monohyd Macrocr* (Macrobid*) 100 Mg Capsr, 100 MG PO BID for 7 Days, CAP Prov:PATRICK MADERA MD 03/19/16 Mupirocin* (Bactroban*) 2% -22 Gram Oint...g., 1 APPLIC TOP BID for 7 Days, EA Prov:ERLIN SALESBIR 06/16/15 Acetaminophen* (Tylophen*) 500 Mg Capsule, 1 CAP PO Q6H PRN for PAIN AND OR ELEVATED TEMP, #20 CAP Prov:ERLIN SALESBIR 06/16/15 Allergies Allergies: Coded Allergies: No Known Allergy (Unverified , 03/19/19) PMhx/Soc History of Surgery: Yes (hystrectomy ) Anesthesia Reaction: No Hx Neurological Disorder: No Hx Respiratory Disorders: Yes (asthma , allergies ) Hx Cardiac Disorders: No Hx Psychiatric Problems: No Hx Miscellaneous Medical Probl: Yes ( pt is jehovahs witness) Hx Alcohol Use: No Hx Substance Use: No Hx Tobacco Use: No FmHx Family History: No coronary disease Physical Exam Vitals Vital Signs Date Temp Pulse Resp B/P (MAP) Pulse Ox O2 O2 Flow FiO2 Time Delivery Rate 03/21/19 99.0 82 16 128/64 96 13:39 (85) Physical Exam Const: No acute distress Resp: Clear to auscultation bilaterally Cardio: Regular rate and rhythm, no murmurs Skin: Left torso/axilla incision and drainage site clean dry intact Back: No midline or flank tenderness Ext: No cyanosis, or edema Neur: Awake and alert Psych: Normal Mood and Affect Procedures/MDM Medical Decision Making: Patient presents for a wound check of a left axillary incision and drainage site that was sent here in ER 2 days ago. Patient appeared well on physical exam. Area appears to be healing well, there is no signs of infection. Advised regarding wound care. Advised to complete the course of antibiotics given to her 2 days ago here in the ER. Patient advised to follow up with PCP in 1-2 days. Patient advised to return to ED for new or worsening symptoms. Patient stable on discharge from the ED. Disclaimer: Inadvertent spelling and grammatical errors are likely due to EHR/dictation software use and do not reflect on the overall quality of patient care. Also, please note that the electronic time recorded on this note does not necessarily reflect the actual time of the patient encounter. Departure Diagnosis: Primary Impression: Encounter for wound re-check Condition: Fair Patient Instructions: Wound Care Referrals: [facility] YOU HAVE RECEIVED A MEDICAL SCREENING EXAM AND THE RESULTS INDICATE THAT YOU DO NOT HAVE A CONDITION THAT REQUIRES URGENT TREATMENT IN THE EMERGENCY DEPARTMENT. FURTHER EVALUATION AND TREATMENT OF YOUR CONDITION CAN WAIT UNTIL YOU ARE SEEN IN YOUR DOCTORS OFFICE WITHIN THE NEXT 1-2 DAYS. IT IS YOUR RESPONSIBILITY TO MAKE AN APPOINTMENT FOR FOLOW-UP CARE. IF YOU HAVE A PRIMARY DOCTOR --you should call your primary doctor and schedule an appointment IF YOU DO NOT HAVE A PRIMARY DOCTOR YOU CAN CALL OUR PHYSICIAN REFERRAL HOTLINE AT IF YOU CAN NOT AFFORD TO SEE A PHYSICIAN YOU CAN CHOSE FROM THE FOLLOWING [facility] [address] [facility]. [facility] [address] [facility] [facility] [address] [facility] [address] [facility]. [facility] [address] [facility]. [facility] [address] Additional Instructions: Call your primary care doctor TOMORROW for an appointment during the next 1-2 days.See the doctor sooner or return here if your condition worsens before your appointment time. RAFAELA VAZQUEZ DO Mar 21, 2019 20:54
== END 2019-03-21 14:28 | disposition home or self-care (01) ==
LOC: E/R 13:32
DX: Z48.01 Encounter for change or removal of surgical wound dressing (principal); J45.909 Unspecified asthma, uncomplicated
CPT/HCPCS: 99281